=== PATIENT | male | born 1985 | race Hispanic/Latino ===

== ENCOUNTER 2024-07-30 11:51 | Emergency (ER) | payer SELFPAY ==
[2024-07-30 12:31] LABS: Absolute Eosinophils 0.2 K/uL (0-0.5); Absolute Monocytes 0.5 K/uL (0.1-1.3); Absolute Neutrophil 6.4 K/uL (1.8-8.0); Basophils % 0.5 % (0-1.3); Eosinophils % 2.4 % (0-4.4); Hematocrit 43.4 % (39.6-49.0); Hemoglobin 15.3 g/dL (13.6-17.9); Lymphocytes % 21.5 % (15.3-44.8); MCH 27.4 pg (27.0-35.0); MCHC 35.3 g/dL (32.0-36.0); MCV 77.7 fL (80-100); MPV 8.3 fL (7.6-11.3); Monocytes % 5.5 % (3.3-12.3); Neutrophils % 70.1 % (41.7-73.7); Nucleated Red Blood Cells % 0.1 % (0-0); Platelets 294 thou/uL (152-406); RBC Red Blood Cell Count 5.59 M/uL (4.33-5.43); Red Cell Distribution Width 13.9 % (12.1-15.2)
[2024-07-30 12:44] LABS: Specific Gravity 1.018 (1.005-1.030); Urine Bilirubin NEGATIVE (Negative); Urine Blood Negative (Negative); Urine Clarity Clear (Clear); Urine Color Light-Yellow (Yellow); Urine Glucose NEGATIVE (Negative); Urine Ketones NEGATIVE (Negative); Urine Microscopic Reflex YN NO UMIC; Urine Nitrite NEGATIVE (Negative); Urine Protein NEGATIVE (Negative); Urine Urobilinogen Normal (Normal)
[2024-07-30 12:50] LABS: Albumin 3.6 g/dL (3.4-5.0); Albumin/Globulin Ratio 0.9 (1.1-1.8); Anion Gap 8.7 mEq/L (5.0-15.0); Bilirubin Total 0.8 mg/dL (0.2-1.0); Potassium 3.7 mEq/L (3.5-5.1); Protein, Total 7.6 g/dL (6.4-8.2)
[2024-07-30] MEDS ORDERED: MORPHINE 4 MG/ML SYR ONE (13:01)
--- NOTE | 2024-07-30 13:48 | RAD REPORT ---
EXAMINATION: CT ABDOMEN AND PELVIS WITH CONTRAST CLINICAL INDICATION: ABD PAIN TECHNIQUE: CT abdomen and pelvis was performed, after the administration of IV contrast, [facility]. Axial, sagittal and coronal reconstructions were obtained. One or more of the following dose reduction techniques were used: Automated exposure control, adjustment of the mA and k V according to patient size, and iterative reconstruction. Unless otherwise specified, incidental findings do not require dedicated imaging follow-up. COMPARISON: No prior exam. FINDINGS: LOWER CHEST: The visualized lung bases are clear. LIVER: Normal in size and contour. No focal lesion. Grossly unremarkable gallbladder. SPLEEN: Normal size. No focal lesion. PANCREAS: No mass, ductal dilation, or rachel-pancreatic fluid. ADRENALS: Normal; no mass. KIDNEYS: Normal size and contour. No hydronephrosis. 3.2 cm cyst medial left kidney. GASTROINTESTINAL TRACT: No evidence of free air, significant intra-abdominal free fluid, bowel obstru ction or abscess. Small fat-containing umbilical hernia. APPENDIX: Normal appendix. LYMPH NODES: No lymphadenopathy. MUSCULOSKELETAL: Mild multilevel spinal degenerative changes. ADDITIONAL FINDINGS: Small fat-containing right inguinal hernia. IMPRESSION: No acute or concerning abnormalities seen in the abdomen or pelvis.
--- NOTE | 2024-07-30 14:06 | EDPHYS ---
Physician Documentation [facility] Name: Bo Villatoro Age: 39 yrs Sex: Male : 1985 Arrival Date: 07/30/2024 Time: 11:51 Bed 2 Private MD: ED Physician Onel Beyer HPI: 07/30 12:08 This 39 yrs old Male presents to ER via Ambulatory with complaints of ms3 Abdominal Pain, Back Pain. 12:08 39-year-old male with no past medical history presents to the emergency ms3 department for right upper quadrant and right back pain that began 2 hours prior to arrival. Patient states pain is 7 of 10. Patient endorses nausea. Patient denies fevers, chills, vomiting, diarrhea. Historical: - Allergies: 12:05 No Known Allergies; ss - Home Meds: 12:05 None [Active]; ss - PMHx: 12:05 None; ss - PSHx: 12:05 None; ss - Immunization history:: Adult Immunizations unknown. - Infectious Disease History:: Denies. - Social history:: Smoking status: Patient denies any tobacco usage or history of. Patient uses alcohol, only on a social basis. ROS: 12:08 Constitutional: Negative for fever, and chills. Cardiovascular: Negative for chest ms3 pain, and palpitations. Respiratory: Negative for shortness of breath, cough, wheezing, and pleuritic chest pain, 12:08 MS/Extremity: Negative for injury and deformity, Skin: Negative for injury, rash, and discoloration, 12:08 Abdomen/GI: Positive for abdominal pain, nausea, Negative for vomiting, Exam: 12:08 Constitutional: This is a well developed, well nourished patient who is awake, alert, ms3 and in no acute distress. Cardiovascular: Regular rate and rhythm with a normal S1 and S2. No gallops, murmurs, or rubs. Normal PMI, no JVD. No pulse deficits. Respiratory: Lungs have equal breath sounds bilaterally, clear to auscultation and percussion. No rales, rhonchi or wheezes noted. No increased work of breathing, no retractions or nasal flaring. Skin: Warm, dry with normal turgor. Normal color with no rashes, no lesions, and no evidence of cellulitis. 12:08 Abdomen/GI: Inspection: abdomen appears normal, Bowel sounds: normal, Palpation: ms3 moderate abdominal tenderness, in the right upper quadrant, Vital Signs: 12:03 BP 143 / 96; Pulse 86; Resp 16; Temp 97.8(O); Pulse Ox 97% on R/A; Weight 104.33 kg; ss Height 6 ft. 0 in. ; Pain 7/10; 13:09 BP 127 / 88; Pulse 88; Resp 20; Pulse Ox 97% ; kn 12:03 Body Mass Index 31.19 (104.33 kg, 182.88 cm) ss 12:03 Pain Scale: Adult ss MDM: 12:08 Differential diagnosis: Cholelithiasis Ureterolithiasis Pancreatitis. ms3 12:21 Medical Screening Exam initiated ms3 14:20 Data reviewed: vital signs, nurses notes, and as a result, I will discharge patient. I ms3 considered the following discharge prescriptions or medication management in the emergency department Medications were administered in the Emergency Department. See MAR. Counseling: I had a detailed discussion with the patient and/or guardian regarding the historical points, exam findings, and any diagnostic results supporting the discharge/admit diagnosis, lab results, radiology results, the need for outpatient follow up, to return to the emergency department if symptoms worsen or persist or if there are any questions or concerns that arise at home. Counseling: I had a detailed discussion with the patient and/or guardian regarding the presence of at least one elevated blood pressure reading (>120/80) during this emergency department visit. Special discussion: Based on the patient's Hx, exam, and Dx evaluation, there is no indication for emergent surgery or inpatient Tx. It is understood by the patient/guardian that if the Sx's persist or worsen they need to return immediately for re-evaluation. I have referred the patient to see his PCP for further evaluation of high blood pressure. ED course: Discussed labs and imaging with patient and his . Patient to follow-up with primary care physician in 2 to 3 days. Patient understands agrees with plan. All questions were answered. Return precautions were discussed to include worsening symptoms, or any other concerns. On reevaluation patient is improved, alert and orient x 4, in no apparent distress, nontoxic-appearing, ambulatory in the Emergency Department, speaking full sentences, abdominal exam benign. 07/30 11:58 Order name: CBC with Diff; Complete Time: 13:16 ms3 07/30 11:58 Order name: CMP; Complete Time: 13:16 ms3 07/30 11:58 Order name: Lipase; Complete Time: 13:16 ms3 07/30 12:31 Order name: UA Rfx Sai Cult if indicated; Complete Time: 13:16 ss 07/30 12:06 Order name: CT Abd/Pelvis - IV Contrast Only; Complete Time: 14:02 ms3 07/30 11:58 Order name: IV Saline Lock; Complete Time: 12:25 ms3 07/30 11:58 Order name: Labs collected and sent; Complete Time: 12:25 ms3 Administered Medications: 13:09 Drug: morphine IVP or IV 4 mg IVP once over 4 mins Route: IVP; Infused Over: 4 mins; kn Site: left antecubital; Disposition Summary: 07/30/24 14:05 Discharge Ordered Notes: Location: Home ms3 Condition: Stable ms3 Diagnosis - Abdominal pain, Generalized ms3 Followup: ms3 - With: Javier Duffy DO - When: 2 - 3 days - Reason: Recheck today's complaints Discharge Instructions: - Discharge Summary Sheet ms3 - Abdominal Pain, Adult ms3 Forms: - Medication Reconciliation Form ms3 - Antibiotic Education ms3 - Prescription Opioid Use ms3 - Patient Portal Instructions ms3 - Leadership Thank You Letter ms3 Signatures: Dispatcher [employer] EDGA Beverly Mena RN RN Onel Beyer DO DO ms3 DANNIELLE SHERWOOD RN RN kn Corrections: (The following items were deleted from the chart) 12:10 11:58 Test, Urine+UC.LAB.BRZ ordered. [facility] EDGA 12:10 12:08 Constitutional: This is a well developed, well nourished patient who is awake, ms3 alert, and in no acute distress. Cardiovascular: Regular rate and rhythm with a normal S1 and S2. No gallops, murmurs, or rubs. Normal PMI, no JVD. No pulse deficits. Respiratory: Lungs have equal breath sounds bilaterally, clear to auscultation and percussion. No rales, rhonchi or wheezes noted. No increased work of breathing, no retractions or nasal flaring. Abdomen/GI: Soft, non-tender, with normal bowel sounds. No distension or tympany. No guarding or rebound. No evidence of tenderness throughout. Skin: Warm, dry with normal turgor. Normal color with no rashes, no lesions, and no evidence of cellulitis. ms3 12:31 12:31 UA Rfx Sai Cult if indicated+U.LAB.BRZ ordered. EDMS EDMS
--- NOTE | 2024-07-30 14:06 | ER ---
Nurse's Notes [facility] Name: Bo Villatoro Age: 39 yrs Sex: Male : 1985 Arrival Date: 07/30/2024 Time: 11:51 Bed 2 Private MD: Diagnosis: Abdominal pain, Generalized Presentation: 07/30 12:03 Chief complaint: Patient states: RUQ pain that radiates to R mid back x 1.5 hours. ss Coronavirus screen: Client denies travel out of the [place] in the last 14 days. Ebola Screen: Patient denies exposure to infectious person. Patient denies travel to an Ebola-affected area in the 21 days before illness onset. Initial Sepsis Screen: Does the patient meet any 2 criteria? No. Patient's initial sepsis screen is negative. Does the patient have a suspected source of infection? No. Patient's initial sepsis screen is negative. Risk Assessment: Do you want to hurt yourself or someone else? Patient reports no desire to harm self or others. Onset of symptoms was July 30, 2024. 12:03 Method Of Arrival: Ambulatory ss 12:03 Acuity: ABHIJEET 3 ss Historical: - Allergies: 12:05 No Known Allergies; ss - Home Meds: 12:05 None [Active]; ss - PMHx: 12:05 None; ss - PSHx: 12:05 None; ss - Immunization history:: Adult Immunizations unknown. - Infectious Disease History:: Denies. - Social history:: Smoking status: Patient denies any tobacco usage or history of. Patient uses alcohol, only on a social basis. Screenin:10 [facility] ED Fall Risk Assessment (Adult) History of falling in the last 3 months, kn including since admission No falls in past 3 months (0 pts) Confusion or Disorientation No (0 pts) Intoxicated or Sedated No (0 pts) Impaired Gait No (0 pts) Mobility Assist Device Used No (0 pt) Altered Elimination No (0 pt) Score/Fall Risk Level 0 - 2 = Low Risk Oriented to surroundings, Maintained a safe environment. Abuse screen: Denies threats or abuse. Denies injuries from another. Nutritional screening: No deficits noted. Tuberculosis screening: No symptoms or risk factors identified. Assessment: 13:10 Pain: Complains of pain in back and abdomen Pain currently is 7 out of 10 on a pain kn scale. Neuro: No deficits noted. Kirk Agitation-Sedation Scale (RASS): 0 - Alert and Calm. Cardiovascular: No deficits noted. Respiratory: No deficits noted. GI: Abdomen is non-distended, Abd is non tender Abdomen is tender to palpation. Vital Signs: 12:03 BP 143 / 96; Pulse 86; Resp 16; Temp 97.8(O); Pulse Ox 97% on R/A; Weight 104.33 kg; ss Height 6 ft. 0 in. ; Pain 7/10; 13:09 BP 127 / 88; Pulse 88; Resp 20; Pulse Ox 97% ; kn 12:03 Body Mass Index 31.19 (104.33 kg, 182.88 cm) ss 12:03 Pain Scale: Adult ss ED Course: 11:54 Patient arrived in ED. mr 11:57 Onel Beyer DO is Attending Physician. ms3 12:05 Triage completed. ss 12:05 Arm band placed on right wrist. ss 12:23 Rosales Gore, RN is Primary Nurse. jl7 12:25 CBC with Diff Sent. bc6 12:25 CMP Sent. bc6 12:25 Lipase Sent. bc6 12:25 Initial lab(s) drawn, by ri, sent to lab. Inserted saline lock: 22 gauge in left bc6 antecubital area, using aseptic technique. Blood collected. Flushed with 10 mL NS. 13:10 Patient has correct armband on for positive identification. Bed in low position. Call kn light in reach. Side rails up X 1. Provided Education on: use of call light, plan of care. 13:10 No provider procedures requiring assistance completed. kn 13:33 CT Abd/Pelvis - IV Contrast Only In Process Unspecified. EDMS 14:05 Javier Duffy DO is Referral Physician. ms3 14:40 IV discontinued, intact, bleeding controlled, No redness/swelling at site. Pressure jl7 dressing applied. Administered Medications: 13:09 Drug: morphine IVP or IV 4 mg IVP once over 4 mins Route: IVP; Infused Over: 4 mins; kn Site: left antecubital; Medication: 13:10 VIS not applicable for this client. kn Outcome: 14:05 Discharge ordered by . ms3 14:40 Discharged to home ambulatory, jl7 14:40 Condition: stable 14:40 Discharge instructions given to patient, Instructed on discharge instructions, follow up and referral plans. Demonstrated understanding of instructions, follow-up care, 14:40 Patient left the ED. jl7 Signatures: Dispatcher [employer] EDMS Yuli Perez, Pelon Reg mr Beverly Mena, RN RN ss Rosales Gore RN RN jl7 Onel Beyer DO DO ms3 Christie Calix 6 DANNIELLE SHERWOOD, RN RN kn
[2024-07-30 15:12] VITALS: TEMP 97.8; O2SAT 97
[2024-07-30 15:13] VITALS: BP 127/88
== END 2024-07-30 14:40 | disposition home or self-care (01) ==
LOC: ER 11:51
DX: R10.84 Generalized abdominal pain (principal)
CPT/HCPCS: 36415; 74177; 80053; 81003; 83690; 85025; 96374; 99284; Q9967